=== PATIENT | male | born 1990 | race Caucasian/White ===

== ENCOUNTER → 2016-09-14 | Outpatient (CLI) | payer OTHER ==
--- NOTE | 2016-09-14 11:20 | DIAGNOSTIC IMAGING REPORT ---
KUB CLINICAL HISTORY: ORCHITIS, RIGHT FLANK PAIN pain COMPARISON STUDY: No previous studies for comparison. FINDINGS: The soft tissues, psoas shadows, renal outlines and intestinal gas pattern appear normal. There is no evidence for bowel obstruction. No abnormal abdominal calcifications are seen. Possible right pelvic calcification overlying the course of the right ureter IMPRESSION: Possible calcification right soft tissue pelvis overlying the course of the right ureter Electronically signed by: Cj Lagunas M.D. 09/14/2016 11:18 AM Dictated Date/Time: 09/14/2016 11:18 AM
== END | disposition home or self-care (01) ==
LOC: C.RAD 10:35
PROVIDERS: ATTEND Nurse Practitioner Adult Health
DX: N45.2 Orchitis (principal); R10.9 Unspecified abdominal pain

== ENCOUNTER → 2016-09-24 | Outpatient (CLI) | payer OTHER ==
--- NOTE | 2016-09-24 15:09 | DIAGNOSTIC IMAGING REPORT ---
IVP CLINICAL HISTORY: Right flank pain. Evaluate for ureteral stone. COMPARISON STUDY: KUB September 14, 2016. TECHNIQUE: Initially, a assignment manager KUB was obtained. An IVP was then performed following intravenous injection 100 cc of Optiray 300 IV. FINDINGS: A 3 mm right pelvic calcification is unchanged since exam of September 14, 2016. Both nephrograms are symmetric. There is no hydronephrosis or hydroureter. No upper tract filling defects are identified on this examination. On this exam, it is difficult to determine the course of the distal right ureter although the pelvic calcification likely reflects a phlebolith. A nonobstructing calculus could appear similar but is considered less likely. IMPRESSION: 1. No hydronephrosis or hydroureter. 2. 3 mm right pelvic calcification. This is unchanged in position since exam of September 14, 2012. A phlebolith is favored. A nonobstructing distal ureteral calculus is considered less likely. Electronically signed by: Jama Cerda M.D. 09/24/2016 3:07 PM Dictated Date/Time: 09/24/2016 2:06 PM
== END | disposition home or self-care (01) ==
LOC: C.RAD 12:25
PROVIDERS: ATTEND Nurse Practitioner Adult Health
DX: R10.9 Unspecified abdominal pain (principal)